=== PATIENT | female | born 1970 | race Caucasian/White ===

== ENCOUNTER 2021-02-13 12:27 | Emergency (ER) | payer SELFPAY ==
[2021-02-13 12:28] VITALS: BP 132/91; PULSE 105; RESP 18; TEMP 36.8; O2SAT 94; BMI 37.3
[2021-02-13 13:02] VITALS: BP 132/91; PULSE 105; RESP 18; O2SAT 94
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
== END 2021-02-13 14:48 | disposition home or self-care (01) ==
PROVIDERS: Emergency Provider Nurse Practitioner Family
DX: Z04.1 Encounter for examination and observation following transport accident (principal); V89.2XXA Person injured in unspecified motor-vehicle accident, traffic, initial encounter
CPT/HCPCS: 73030; 99282